=== PATIENT | male | born 1990 | race Caucasian/White ===

== ENCOUNTER 2020-04-16 10:19 | Emergency (ER) | payer OTHER ==
[~2020-04-16] VITALS: Ht 188 cm; Wt 180.0 kg
[2020-04-16] MEDS ORDERED: KETOROLAC 30MG/ML VIAL IM ONE (10:30)
[2020-04-16 11:48] VITALS: BP 129/91
== END 2020-04-16 11:49 | disposition home or self-care (01) ==
LOC: ER 10:41
DX: M25.562 Pain in left knee (principal); I10 Essential (primary) hypertension; Z98.890 Other specified postprocedural states
CPT/HCPCS: 73562; 96372; 99283; J1885